=== PATIENT | male | born 1980 | race Hispanic/Latino ===

== ENCOUNTER 2019-04-29 21:54 | Emergency (ER) | payer SELFPAY ==
[~2019-04-29] VITALS: Ht 170.2 cm; Wt 83.6 kg
[~2019-04-29 21:54] MED LIST: BACTRIM DS1 TAB OR; FLOMAX0.4 MG OR; NO HOME MEDS
[2019-04-29] MEDS ORDERED: OMNICEF300 M1 PO (22:14)
[2019-04-29 22:28] VITALS: BP 140/81
== END 2019-04-29 22:45 | disposition home or self-care (01) | DRG 153 ==
LOC: ED 21:54
DX: J03.90 Acute tonsillitis, unspecified (principal)

== ENCOUNTER 2020-05-15 16:11 | Emergency (ER) | payer SELFPAY ==
[~2020-05-15] VITALS: Ht 170.2 cm; Wt 88.0 kg
[~2020-05-15 16:11] MED LIST changes: +OMNICEF300 M1 PO
[2020-05-15 17:01] LABS: HEMATOCRIT 40.5 % (39.0-50.0); HEMOGLOBIN 13.9 g/dl (14.0-18.0); IMMATURE GRANULOCYTES 0.2 % (0.0-5.0); MEAN CELL VOLUME 90.8 fL CALC (80.0-100.0); MEAN CORPUSCULAR HGB 31.2 pG CALC (26.0-32.0); MEAN CORPUSCULAR HGB CONC 34.3 g/dL CAL (32.0-36.0); NEUT# 4.74 thou/uL (1.82-7.42); RED BLOOD COUNT 4.46 mill/uL (4.70-6.10); RED CELL DISTRI WIDTH 11.8 % (11.5-15.5)
[2020-05-15 17:20] LABS: ALBUMIN 4.6 g/dL (3.2-5.0); ALKALINE PHOSPHATASE 91 u/l (38-126); ANION GAP 13 (6-22 (CALC)); BILIRUBIN, TOTAL 0.3 mg/dL (0.0-1.4); BUN 22 mg/dL (9-20); BUN/CREATININE RATIO 21 (12-20 (CALC)); CARBON DIOXIDE 25 mmol/l (22-30); CHLORIDE 103 mmol/l (95-108); CREATININE 1.1 mg/dL (0.7-1.3); GFR > 60 ML/MIN (>=60 (CALC)); GFR FOR AFR.AMER. > 60 ML/MIN (>=60 (CALC)); LIPASE 143 u/l (23-300); POTASSIUM 4.5 mmol/l (3.5-5.1); SGOT/AST 34 u/l (17-59); SODIUM 137 mmol/l (137-146); TOTAL PROTEIN 7.7 g/dL (6.3-8.2)
[2020-05-15 17:25] LABS: ACT PARTIAL THROMBO TIME 25.2 SECONDS (20.0-32.5); PROTHROMBIN TIME 9.7 SECONDS (9.0-12.5)
[2020-05-15] MEDS ORDERED: IBUPROFEN600 MG PO (17:50)
[2020-05-15 18:04] VITALS: BP 123/67
== END 2020-05-15 18:04 | disposition home or self-care (01) | DRG 313 ==
LOC: ED 16:11
PROVIDERS: Student in an Organized Health Care Education/Training Program
DX: R07.9 Chest pain, unspecified (principal); Z20.828 Contact with and (suspected) exposure to other viral communicable diseases